=== PATIENT | female | born 1995 | race Caucasian/White ===

== ENCOUNTER → 2017-01-26 | Outpatient (CLI) | payer OTHER ==
[~2017-01-26] MED LIST: BCPILLS PO; CYCL10TA6 PO; IBUP-1050 PO; IBUP600T44 PO; NORGTAB36 PO
[2017-01-30 15:37] LABS: CHLAMYDIA TRACH RNA*** DETECTED (NOT DETECTED); GC (NEIS GONORRHOEAE)RNA** NOT DETECTED (NOT DETECTED)
== END | disposition home or self-care (01) ==
LOC: C.LABSPEC 11:54
PROVIDERS: ATTEND Obstetrics & Gynecology
DX: A74.9 Chlamydial infection, unspecified (principal)

== ENCOUNTER 2017-06-09 15:50 | Emergency (ER) | payer OTHER ==
[~2017-06-09] VITALS: Ht 157.5 cm; Wt 64.3 kg
[2017-06-09 15:53] VITALS: TEMP 36.9; Ht 157.5 cm; Wt 64.3 kg
[2017-06-09] MEDS ORDERED: BCPILLS PO (16:02)
[2017-06-09] MEDS ORDERED: IBUP-1050 PO (16:03)
[2017-06-09] MEDS ORDERED: SODIUM CHLORIDE 0.9% 1000ML 1,000 ML IV STA (16:08)
[2017-06-09] MEDS ORDERED: SODIUM CHLORIDE 0.9% 1000ML 1,000 ML IV ONE (16:08)
--- NOTE | 2017-06-09 16:24 | EMERGENCY ROOM VISIT NOTE ---
History Report prepared by Simon: Bandar Macdonald Under the Supervision of: Dr. Mahad Tran M.D. First contact with patient: 16:01 Chief Complaint: PELVIC PAIN Stated Complaint: PELVIC AND ABDOMINAL PAIN History of Present Illness The patient is a 21 year old female who presents to the Emergency Room with complaints of worsening intermittent right lower abdominal pain for the past two days. The patient saw her doctor this morning, and they told her to come in for evaluation for possible appendicitis and ovarian cysts. The patient additionally states that she is having some vaginal bleeding. She states that she is currently on control, and her last period was two weeks ago, and she is not . The patient states that there is some blood in her urine, and she is having some pain with intercourse. She denies any trauma, and she states that nothing makes her pain better or worse. She states that she still has her appendix, and she has not had any ovarian issues in the past. She denies any back pain or leg swelling. She states that she has a history of chlamydia. Source of History: patient, spouse/significant other Onset: two days ago Position: abdomen (RLQ) Timing: intermittent, worsening Associated Symptoms: No back pain Note: Associated symptoms: Pain with intercourse, vaginal bleeding, hematuria Review of Systems See HPI for pertinent positives & negatives. A total of 10 systems reviewed and were otherwise negative. Past Medical & Surgical Medical Problems: (1) Chlamydia Old medical records were reviewed. Nurse's notes were reviewed and I agree with No surgery. Still has her appendix. No history of Social History Smoking Status: Never Smoker Marital Status: in relationship Occupation Status: student Current/Historical Medications Scheduled Control Pills ( Control Pills), 1 TAB PO DAILY Ibuprofen (Advil), 400 MG PO DAILY Allergies Coded Allergies: No Known Allergies (Unverified , 06/09/17) Physical Exam Vital Signs Date Time Temp Pulse Resp B/P (MAP) Pulse Ox O2 Delivery O2 Flow Rate FiO2 06/09/17 19:48 94 16 119/73 100 06/09/17 18:49 87 18 117/71 06/09/17 15:53 36.9 88 16 134/68 98 Physical Exam General: Non-ill appearing young female in no acute distress. HEENT: Normal cephalic atraumatic. Pupils are equal round and reactive to light. Extraocular movements are intact. Oropharynx is pink with moist mucous membranes. No swelling of the mouth lips or tongue. Neck: Supple with a midline trachea. No meningeal signs or stiffness, no JVD or bruits. No Stridor. Chest: Clear to auscultation bilaterally. No wheezes or rhonchi. No increased work of breathing. Heart: regular rate and rhythm. Abdomen: Mild tenderness in the right lower quadrant. Soft, nondistended without rebound guarding or rigidity. Extremities: No cyanosis clubbing or edema. No calf tenderness or assymetry Spine/Back. Non tender to palpation. No CVA tenderness Skin: Good turgor without rashes. Neurologic exam: Cranial nerves two through 12 are intact. Motor and sensation are intact and symmetrical throughout. Medical Decision & Procedures ER Provider Diagnostic Interpretation: Radiology results as stated below per my review and radiologist interpretation: PELVIC COMPLETE NON OB CLINICAL HISTORY: eval for RLA pain PAIN COMPARISON STUDY: None FINDINGS: The uterus measured 7.3 cm. The endometrial stripe measured 4 mm. The right ovary measured 3.2 cm with several small follicular cysts. The left ovary measured 2.5 cm with several small follicular cysts. There is no ultrasonographic evidence of ovarian torsion. It should be noted that ovarian torsion can be present with normal Doppler ultrasonographic findings. There was no evidence of pathologic free pelvic fluid. IMPRESSION: Small bilateral ovarian follicular cysts. Otherwise negative study The above report was generated using voice recognition software. It may contain grammatical, syntax or spelling errors. Electronically signed by: Mitul Tom M.D. 06/09/2017 5:39 PM Dictated Date/Time: 06/09/2017 5:37 PM APPENDIX ULTRASOUND HISTORY: Right lower quadrant pain eval for appy COMPARISON: None. FINDINGS: Transabdominal scanning of the right lower quadrant was performed. The appendix was not identified. There are no fluid collections or masses within the right lower quadrant. IMPRESSION: The appendix was not identified. The above report was generated using voice recognition software. It may contain grammatical, syntax or spelling errors. Electronically signed by: Mitul Tom M.D. 06/09/2017 5:34 PM Dictated Date/Time: 06/09/2017 5:34 PM ABD/PELVIS IV AND ORAL CONT CT DOSE: 282.17 mGy.cm HISTORY: Pain eval for appy, [facility] TECHNIQUE: Multiaxial CT images of the abdomen and pelvis were performed following the use of intravenous and oral contrast. COMPARISON STUDY: None. FINDINGS: The lung bases are clear. The liver, spleen, gallbladder, pancreas, kidneys, and adrenal glands are within normal limits. No bowel wall thickening or obstruction. The pelvic organs are unremarkable. No suspicious lytic or blastic osseous lesions. The appendix is normal. Small bilateral ovarian follicular cyst. IMPRESSION: No significant abnormality identified within the abdomen or pelvis. Normal appendix. Small bilateral ovarian follicular cysts The above report was generated using voice recognition software. It may contain grammatical, syntax or spelling errors. Electronically signed by: Mitul Tom M.D. 06/09/2017 7:25 PM Dictated Date/Time: 06/09/2017 7:23 PM Laboratory Results 06/09/17 16:40 Red Blood Count 5.29, Mean Corpuscular Volume 80.7, Mean Corpuscular Hemoglobin 27.6, Mean Corpuscular Hemoglobin Concent 34.2, Mean Platelet Volume 9.3, Neutrophils (%) (Auto) 70.7, Lymphocytes (%) (Auto) 20.0, Monocytes (%) (Auto) 7.4, Eosinophils (%) (Auto) 1.6, Basophils (%) (Auto) 0.2, Neutrophils # (Auto) 6.51, Lymphocytes # (Auto) 1.84, Monocytes # (Auto) 0.68, Eosinophils # (Auto) 0.15, Basophils # (Auto) 0.02 06/09/17 16:40 Test 06/09/17 16:40 06/09/17 16:50 White Blood Count 9.21 K/uL (4.8-10.8) Red Blood Count 5.29 M/uL (4.2-5.4) Hemoglobin 14.6 g/dL (12.0-16.0) Hematocrit 42.7 % (37-47) Mean Corpuscular Volume 80.7 fL (80-100) Mean Corpuscular Hemoglobin 27.6 pg (25-34) Mean Corpuscular Hemoglobin Concent 34.2 g/dl (32-36) Platelet Count 323 K/uL (130-400) Mean Platelet Volume 9.3 fL (7.4-10.4) Neutrophils (%) (Auto) 70.7 % Lymphocytes (%) (Auto) 20.0 % Monocytes (%) (Auto) 7.4 % Eosinophils (%) (Auto) 1.6 % Basophils (%) (Auto) 0.2 % Neutrophils # (Auto) 6.51 K/uL (1.4-6.5) Lymphocytes # (Auto) 1.84 K/uL (1.2-3.4) Monocytes # (Auto) 0.68 K/uL (0.11-0.59) Eosinophils # (Auto) 0.15 K/uL (0-0.5) Basophils # (Auto) 0.02 K/uL (0-0.2) RDW Standard Deviation 37.6 fL (36.4-46.3) RDW Coefficient of Variation 12.8 % (11.5-14.5) Immature Granulocyte % (Auto) 0.1 % Immature Granulocyte # (Auto) 0.01 K/uL (0.00-0.02) Anion Gap 8.0 mmol/L (3-11) Est Creatinine Clear Calc Drug Dose 90.1 ml/min Estimated GFR () 110.4 Estimated GFR (Non- 95.2 BUN/Creatinine Ratio 14.3 (10-20) Calcium Level 9.1 mg/dl (8.5-10.1) Total Bilirubin 0.7 mg/dl (0.2-1) Direct Bilirubin 0.1 mg/dl (0-0.2) Aspartate Amino Transf (AST/SGOT) 19 U/L (15-37) Alanine Aminotransferase (ALT/SGPT) 28 U/L (12-78) Alkaline Phosphatase 68 U/L (45-117) Total Protein 8.6 gm/dl (6.4-8.2) Albumin 4.0 gm/dl (3.4-5.0) Lipase 146 U/L (73-393) Human Chorionic Gonadotropin, Qual NEG (NEG) Urine Color YELLOW Urine Appearance CLOUDY (CLEAR) Urine pH 5.5 (4.5-7.5) Urine Specific [place] 1.033 (1.000-1.030) Urine Protein TRACE (NEG) Urine Glucose (UA) NEG (NEG) Urine Ketones TRACE (NEG) Urine Occult Blood TRACE (NEG) Urine Nitrite NEG (NEG) Urine Bilirubin NEG (NEG) Urine Urobilinogen NEG (NEG) Urine Leukocyte Esterase NEG (NEG) Urine WBC (Auto) 1-5 /hpf (0-5) Urine RBC (Auto) 0-4 /hpf (0-4) Urine Hyaline Casts (Auto) 5-10 /lpf (0-5) Urine Epithelial Cells (Auto) >30 /lpf (0-5) Urine Bacteria (Auto) NEG (NEG) Urine Renal Epithelial Cells /lpf (0-5) Urine Crystals See comments (NONE PRSENT) Urine Test NEG (NEG) Laboratory studies as stated above per my review. Medications Administered Medications (Trade) Dose Ordered Sig/Remedios Route Start Time Stop Time Status Last Admin Dose Admin Sodium Chloride 1,000 ml @ 999 mls/hr Q1H1M STAT IV 06/09/17 16:08 06/09/17 17:08 DC 06/09/17 16:47 999 MLS/HR Sodium Chloride 1,000 ml @ 150 mls/hr Q6H40M ONCE IV 06/09/17 16:08 06/09/17 19:55 DC 06/09/17 16:48 150 MLS/HR ED Course 1601: Past medical records reviewed. The patient was evaluated in room C10, and a complete history and physical examination were performed. 1608: Sodium Chloride 1000 ml @ 150 mls/hr IV, Sodium Chloride 1000 ml @ 999 mls /hr IV 181: I reevaluated the patient, and she was resting comfortably. She is awaiting CT scan. 185: I reassessed the patient, and she is resting comfortably. 1940: Upon reevaluation, the patient is resting comfortably. I discussed the results and treatment plan with her. She verbalized agreement of the treatment plan. The patient was discharged home. Medical Decision Differentials include, but are not limited to; ovarian cysts, , appendicitis, electrolyte or metabolic abnormality. Blood pressure Screening: Patient was found to have normal blood pressure on screening and does not require follow-up. Medication Reconciliation: I attest that I have personally reviewed the patient' s current medication list. This patient comes in as described above. She was placed in room C 10. She is here for treatment evaluation of right lower quadrant pain. She was seen by her primary care physician today who did a vaginal exam as well as cultures and urinalysis. They did send her here for evaluation for ovarian pathology and possible appendectomy. The patient has had some vaginal bleeding. Given the fact she just had a pelvic exam by her primary care provider, I do not repeat this we did establish an IV. Her white count is not elevated and she's had no fever. She's has no acute electrolyte or metabolic abnormalities. She's had no significant anemia. Urinalysis not suggest a UTI with a culture pending. test is negative. Ultrasounds do not reveal the appendix and reveal no significant ovarian pathology. CAT scan of her abdomen was unremarkable for any acute findings. This may be related to her menstrual bleeding. She is on control and this could be breakthrough bleeding. She can use ibuprofen 400 mg every 6 hours for pain and return if: increasing pain, worsening of symptoms, fever chills any new problems or concerns and follow her doctor this week for recheck. She was happy with plan and discharged to home. Impression Primary Impression: Right lower quadrant abdominal pain Additional Impression: Vaginal bleeding Scribe Attestation The scribe's documentation has been prepared under my direction and personally reviewed by me in its entirety. I confirm that the note above accurately reflects all work, treatment, procedures, and medical decision making performed by me. Departure Information Dispostion Home / Self-Care Referrals No Doctor, Assigned (PCP) Forms HOME CARE DOCUMENTATION FORM, IMPORTANT VISIT INFORMATION, WORK / SCHOOL INSTRUCTIONS Patient Instructions My [facility] Additional Instructions Rest. Drink plenty of fluids. Use ibuprofen 400 mg every 6 hours, take with food Return if: Increasing pain, fever or chills, worsening symptoms, any new problems or concerns. Follow-up with your doctor this week for recheck if not better. Return to the ER at any point if symptoms worsen. Problem Qualifiers
[2017-06-09 16:52] LABS: BASO % 0.2 %; BASO ABS # 0.02 K/uL (0-0.2); COMPLETE YES; EOS % 1.6 %; HEMATOCRIT 42.7 % (37-47); IG% 0.1 %; LYMPH ABS # 1.84 K/uL (1.2-3.4); MEAN CELL VOLUME 80.7 fL (80-100); MEAN CORPUSCULAR HEMOGLOBIN 27.6 pg (25-34); MEAN CORPUSCULAR HGB CONC 34.2 g/dl (32-36); MEAN PLATELET VOLUME 9.3 fL (7.4-10.4); MONO % 7.4 %; NEUT % 70.7 %; PLATELET COUNT 323 K/uL (130-400); RED BLOOD COUNT 5.29 M/uL (4.2-5.4); WHITE BLOOD COUNT 9.21 K/uL (4.8-10.8)
[2017-06-09 17:10] LABS: BUN/CREATININE RATIO 14.3 (10-20); CALCIUM 9.1 mg/dl (8.5-10.1); CREATININE 0.87 mg/dl (0.60-1.20); POTASSIUM 3.5 mmol/L (3.5-5.1)
[2017-06-09 17:17] LABS: PREG INTERNAL NEGATIVE QC NEG CLEAR BACKGROUND; PREG INTERNAL POSITIVE QC POS CONTROL LINE
--- NOTE | 2017-06-09 17:35 | DIAGNOSTIC IMAGING REPORT ---
APPENDIX ULTRASOUND HISTORY: Right lower quadrant pain eval for appy COMPARISON: None. FINDINGS: Transabdominal scanning of the right lower quadrant was performed. The appendix was not identified. There are no fluid collections or masses within the right lower quadrant. IMPRESSION: The appendix was not identified. The above report was generated using voice recognition software. It may contain grammatical, syntax or spelling errors. Electronically signed by: Mitul Tom M.D. 06/09/2017 5:34 PM Dictated Date/Time: 06/09/2017 5:34 PM
--- NOTE | 2017-06-09 17:40 | DIAGNOSTIC IMAGING REPORT ---
PELVIC COMPLETE NON OB CLINICAL HISTORY: eval for RLA pain PAIN COMPARISON STUDY: None FINDINGS: The uterus measured 7.3 cm. The endometrial stripe measured 4 mm. The right ovary measured 3.2 cm with several small follicular cysts. The left ovary measured 2.5 cm with several small follicular cysts. There is no ultrasonographic evidence of ovarian torsion. It should be noted that ovarian torsion can be present with normal Doppler ultrasonographic findings. There was no evidence of pathologic free pelvic fluid. IMPRESSION: Small bilateral ovarian follicular cysts. Otherwise negative study The above report was generated using voice recognition software. It may contain grammatical, syntax or spelling errors. Electronically signed by: Mitul Tom M.D. 06/09/2017 5:39 PM Dictated Date/Time: 06/09/2017 5:37 PM
[2017-06-09 17:52] LABS: URINE APPEARANCE CLOUDY (CLEAR); URINE BILIRUBIN NEG (NEG); URINE COLOR YELLOW; URINE EPITHELIAL CELL AUTO >30 /lpf (0-5); URINE NITRITE NEG (NEG); URINE PH 5.5 (4.5-7.5); URINE SPECIFIC GRAVITY 1.033 (1.000-1.030); UROBILINOGEN NEG (NEG)
[2017-06-09 17:57] LABS: MANUAL MICROSCOPIC REQUIRED? NO; REVIEW REQ? YES
[2017-06-09] MEDS ORDERED: OPTIRAY 320 IV PRN (18:45)
--- NOTE | 2017-06-09 19:26 | DIAGNOSTIC IMAGING REPORT ---
ABD/PELVIS IV AND ORAL CONT CT DOSE: 282.17 mGy.cm HISTORY: Pain eval for appy, [facility] TECHNIQUE: Multiaxial CT images of the abdomen and pelvis were performed following the use of intravenous and oral contrast. COMPARISON STUDY: None. FINDINGS: The lung bases are clear. The liver, spleen, gallbladder, pancreas, kidneys, and adrenal glands are within normal limits. No bowel wall thickening or obstruction. The pelvic organs are unremarkable. No suspicious lytic or blastic osseous lesions. The appendix is normal. Small bilateral ovarian follicular cyst. IMPRESSION: No significant abnormality identified within the abdomen or pelvis. Normal appendix. Small bilateral ovarian follicular cysts The above report was generated using voice recognition software. It may contain grammatical, syntax or spelling errors. Electronically signed by: Mitul Tom M.D. 06/09/2017 7:25 PM Dictated Date/Time: 06/09/2017 7:23 PM
[2017-06-09 19:48] VITALS: BP 119/73; PULSE 94; O2SAT 100
== END 2017-06-09 19:49 | disposition home or self-care (01) ==
LOC: C.EDB 15:51 → C.EDC 19:49
DX: R10.30 Lower abdominal pain, unspecified (principal); N93.9 Abnormal uterine and vaginal bleeding, unspecified

== ENCOUNTER 2017-07-04 16:09 | Emergency (ER) | payer OTHER ==
[~2017-07-04] VITALS: Ht 157.5 cm; Wt 63.4 kg
[~2017-07-04 16:09] MED LIST changes: -CYCL10TA6 PO; -IBUP600T44 PO; -NORGTAB36 PO
[2017-07-04 16:18] VITALS: TEMP 36.8; Ht 157.5 cm; Wt 63.4 kg
[2017-07-04] MEDS ORDERED: KETOROLAC TROMETHAMINE 30 MG/ML VIAL IV STA (16:50)
[2017-07-04] MEDS ORDERED: SODIUM CHLORIDE 0.9% 1000ML 1,000 ML IV ONE (17:00)
--- NOTE | 2017-07-04 17:04 | EMERGENCY ROOM VISIT NOTE ---
History First contact with patient: 16:25 Chief Complaint: VAGINAL BLEEDING Stated Complaint: BLEEDING FOR 3 WEEKS, BACK AND ABD PAIN History of Present Illness The patient is a 21 year old female who presents to the Emergency Room with complaints of worsening lower abdominal cramping over the last month. She also started having vaginal bleeding. She reports having almost constant bleeding over the last 3 weeks. This is very unusual for her. She is on control pills. She typically has a regular menses every 28 days. She denies any heavy clots. She is not changing her tampon or pad every hour. She denies any chance of . She does admit to dyspareunia which is new within the last week. She denies any vaginal discharge. No fever or chills. Denies nausea or vomiting. She has had some intermittent diarrhea and constipation that has been going on for also several weeks. She also complains of lower back discomfort. She denies any urinary symptoms. The patient was evaluated in the emergency department approximately 1 month ago. Imaging was performed. She was told that she has small ovarian cysts, which were causing her symptoms. The patient did not follow-up with a concrete tester as they do not take her insurance. She has a [employer] student. Review of Systems 10 system review performed and negative unless noted in HPI or below Past Medical/Surgical History Medical Problems: (1) Chlamydia Bilateral ovarian cysts Social History Smoking Status: Never Smoker Alcohol Use: none Marital Status: in relationship Occupation Status: student Current/Historical Medications Scheduled Control Pills ( Control Pills), 1 TAB PO DAILY Cyclobenzaprine Hcl (Flexeril), 10 MG PO TID Ibuprofen (Advil), 400 MG PO DAILY Ibuprofen (Motrin), 600 MG PO TID Norgestimate-Ethinyl Estradiol (Ortho Tri-Cyclen), 1 TAB PO DAILY Physical Exam Vital Signs Date Time Temp Pulse Resp B/P (MAP) Pulse Ox O2 Delivery O2 Flow Rate FiO2 07/04/17 20:48 76 20 104/62 100 Room Air 07/04/17 19:40 76 16 98/65 100 Room Air 07/04/17 17:54 79 18 109/67 81 105/72 81 101/71 07/04/17 16:18 36.8 84 16 117/72 97 Room Air Physical Exam VITALS: Vitals are noted on the nurse's note and reviewed by myself. Vital signs stable. GENERAL: 21-year-old female, in no acute distress, nondiaphoretic, well- developed well-nourished. SKIN: The skin was without rashes, erythema, edema, or bruising. HEAD: Normocephalic atraumatic. MOUTH: Mucous membranes moist NECK: Supple without nuchal rigidity. No lymphadenopathy. No JVD. HEART: Regular rate and rhythm without murmurs gallops or rubs. LUNGS: Clear to auscultation bilaterally without wheezes, rales or rhonchi. No accessory muscle use. ABDOMEN: Positive bowel sounds x 4.Soft, nontender, without organomegaly. No guarding or rebound tenderness. No CVA tenderness noted bilaterally : external genitalia free of any lesions. Small amount of blood noted in the vaginal vault. Cervix is pink and free of any lesions. Os is closed. Bimanual exam reveals no masses on the ovaries bilaterally. No cervical motion tenderness noted. MUSCULOSKELETAL: No muscle atrophy, erythema, or edema noted. No tenderness over the spinous processes throughout the spine. No tenderness or muscle spasms noted of the paraspinous muscles. No SI joint tenderness bilaterally. Full range of motion in all extremities. Normal gait. Strength 5/5 throughout. NEURO: Patient was alert and oriented to person place and time. Normal sensation to touch. No focal neurological deficits. Medical Decision & Procedures ER Provider Diagnostic Interpretation: PELVIC COMPLETE NON OB HISTORY: 21 years-old Female continued lower abd pain--now menstrual bleeding. heavy COMPARISON: Pelvic ultrasound 06/09/2017 TECHNIQUE: Multiple real-time sonographic images of the deep pelvic structures were obtained transabdominally and transvaginally assessing grayscale appearance, color and spectral flow. FINDINGS: Transabdominal: Anteflexed uterus measures 9.5 x 4.2 x 6.8 cm. Right ovary measures 3.1 x 1.7 x 1.7 cm with arterial inflow documented. Transvaginal: Uterus measures 6.8 x 2.8 x 5.7 cm. Endometrium is homogeneous, 0.5 cm. No focal myometrial mass lesion identified. There is trace nonspecific fluid within the endocervical canal. Right ovary measures 3.0 x 1.9 x 3.0 cm and appears normal with arterial inflow documented. There is a trace amount of free pelvic fluid noted. Left ovary measures 2.3 x 2.0 x 2.2 cm with arterial inflow documented and appears unremarkable. Evaluation of the left ovary is limited secondary to deep position within the pelvis. IMPRESSION: 1. Normal sonographic appearance of the bilateral ovaries without evidence of torsion. 2. Uterus and endometrium appear unremarkable. 3. Trace free pelvic fluid, likely physiologic. The above report was generated using voice recognition software. It may contain grammatical, syntax or spelling errors. Electronically signed by: Marcus Miller M.D. 07/04/2017 7:46 PM Dictated Date/Time: 07/04/2017 7:41 PM The status of this report is Signed. Draft = Not yet reviewed or approved by Radiologist. Signed = Reviewed and approved by Radiologist. <AttendingPhy></AttendingPhy> <FamilyPhy>No Doctor, Assigned</FamilyPhy> < PrimaryPhy>No Doctor, Assigned</PrimaryPhy> <UnitNumber>[id number]</UnitNumber> <VisitNumber>[id number]</VisitNumber> Laboratory Results 07/04/17 16:50 Red Blood Count 5.02, Mean Corpuscular Volume 80.1, Mean Corpuscular Hemoglobin 26.9, Mean Corpuscular Hemoglobin Concent 33.6, Mean Platelet Volume 9.5, Neutrophils (%) (Auto) 62.2, Lymphocytes (%) (Auto) 25.6, Monocytes (%) (Auto) 9.7, Eosinophils (%) (Auto) 2.0, Basophils (%) (Auto) 0.3, Neutrophils # (Auto) 3.96, Lymphocytes # (Auto) 1.63, Monocytes # (Auto) 0.62, Eosinophils # (Auto) 0.13, Basophils # (Auto) 0.02 07/04/17 16:50 Test 07/04/17 16:50 White Blood Count 6.37 K/uL (4.8-10.8) Red Blood Count 5.02 M/uL (4.2-5.4) Hemoglobin 13.5 g/dL (12.0-16.0) Hematocrit 40.2 % (37-47) Mean Corpuscular Volume 80.1 fL (80-100) Mean Corpuscular Hemoglobin 26.9 pg (25-34) Mean Corpuscular Hemoglobin Concent 33.6 g/dl (32-36) Platelet Count 307 K/uL (130-400) Mean Platelet Volume 9.5 fL (7.4-10.4) Neutrophils (%) (Auto) 62.2 % Lymphocytes (%) (Auto) 25.6 % Monocytes (%) (Auto) 9.7 % Eosinophils (%) (Auto) 2.0 % Basophils (%) (Auto) 0.3 % Neutrophils # (Auto) 3.96 K/uL (1.4-6.5) Lymphocytes # (Auto) 1.63 K/uL (1.2-3.4) Monocytes # (Auto) 0.62 K/uL (0.11-0.59) Eosinophils # (Auto) 0.13 K/uL (0-0.5) Basophils # (Auto) 0.02 K/uL (0-0.2) RDW Standard Deviation 37.1 fL (36.4-46.3) RDW Coefficient of Variation 12.8 % (11.5-14.5) Immature Granulocyte % (Auto) 0.2 % Immature Granulocyte # (Auto) 0.01 K/uL (0.00-0.02) Urine Color YELLOW Urine Appearance CLEAR (CLEAR) Urine pH 5.5 (4.5-7.5) Urine Specific [place] 1.023 (1.000-1.030) Urine Protein NEG (NEG) Urine Glucose (UA) NEG (NEG) Urine Ketones NEG (NEG) Urine Occult Blood NEG (NEG) Urine Nitrite NEG (NEG) Urine Bilirubin NEG (NEG) Urine Urobilinogen NEG (NEG) Urine Leukocyte Esterase NEG (NEG) Urine Test NEG (NEG) Anion Gap 5.0 mmol/L (3-11) Est Creatinine Clear Calc Drug Dose 96.1 ml/min Estimated GFR () 120.3 Estimated GFR (Non- 103.8 BUN/Creatinine Ratio 13.1 (10-20) Calcium Level 9.5 mg/dl (8.5-10.1) Thyroid Stimulating Hormone (TSH) 1.910 uIu/ml (0.300-4.500) Medications Administered Medications (Trade) Dose Ordered Sig/Remedios Route Start Time Stop Time Status Last Admin Dose Admin Ketorolac Tromethamine (Toradol Inj) 30 mg NOW STAT IV 07/04/17 16:50 07/04/17 16:52 DC 07/04/17 17:20 30 MG Sodium Chloride 1,000 ml @ 999 mls/hr Q1H1M ONCE IV 07/04/17 17:00 07/04/17 18:00 DC 07/04/17 17:19 999 MLS/HR ED Course Patient was seen and examined Vital signs including blood pressure were reviewed medications list was verified with patient Labs were obtained, and a saline lock was established She was given Toradol 30 mg IV A pelvic ultrasound was performed in addition to a pelvic exam The patient was reassessed. She had good pain relief with Toradol. We discussed the findings of her workup. She voiced understanding. I reviewed discharge instructions the patient. They voiced understanding and had no further questions. Medical Decision Differential diagnosis: Dysmenorrhea, ovarian cysts, menorrhagia, fibroids, PID , STD, muscular back pain, UTI This patient is a pleasant 21 year-old [employer] student that returns to the emergency department with complaints of vaginal bleeding for the last few weeks. She was evaluated in the emergency department for lower abdominal pain. An extensive workup including a pelvic ultrasound in addition to a CT scan were performed. She was told to have ovarian cysts. Now, the patient is experiencing vaginal bleeding and some pain with sexual intercourse. No cervical motion tenderness nor any discharge or foul odor were noted on her exam. Cultures were taken. No large cysts were noted on the patient's ultrasound. No uterine fibroids. A TSH was normal. There is no white count. She is not anemic. The patient is not . She is experiencing breakthrough bleeding. The etiology of this is unclear. It was recommended that she follow up with an chartered financial analyst. They apparently do not take the patient's insurance. She was requesting to try another control pill. She was advised to finish her current month of her control. After she experiences a typical period, she was provided a prescription for one-month supply of Ortho Tri-Cyclen. She was advised of the risks of this medication ( in addition to all OCPs) including blood clots. Regarding the patient's back pain, there are no signs of UTI or pyelonephritis. It is possible that this is muscular in nature. She was provided a course of ibuprofen and Flexeril. She was advised to follow-up with [facility] within the next week. She will return to the emergency department with any new or worsening symptoms. Medication Reconcilliation Current Medication List: was personally reviewed by me Blood Pressure Screening Patient's blood pressure: Normal blood pressure Impression Primary Impression: Abnormal vaginal bleeding Additional Impression: Back pain Departure Information Dispostion Home / Self-Care Condition GOOD Prescriptions Ibuprofen (Motrin) 600 Mg Tab 600 MG PO TID for Pain, #15 TAB PRN Prov: Susi Mayen PA-C 07/04/17 Cyclobenzaprine Hcl (FLEXERIL) 10 Mg Tab 10 MG PO TID, #12 TAB Prov: Susi Mayen PA-C 07/04/17 Norgestimate-Ethinyl Estradiol (ORTHO TRI-CYCLEN) 1 Tab Tab 1 TAB PO DAILY for 28 Days, #28 TAB 0 Refills Prov: Susi Mayen PA-C 07/04/17 Referrals No Doctor, Assigned (PCP) Patient Instructions ED Bleed Irregular Vaginal, My [facility] [employer] Additional Instructions You were evaluated in the emergency department for abnormal vaginal bleeding in addition to back pain. Your blood counts are stable. There was no sign of a urinary tract infection. Please continue current medications as prescribed. Finish your current pill pack. After your period is over, you may try your new oral contraceptive. As with all oral contraceptives, there are risks such as blood clots. Smoking highly increases these risks. Please take ibuprofen 1 tab every 8 hours as needed for back pain Please take Flexeril 1 tab every 8 hours as needed for muscular pain. Please do not drink alcohol or drive well taking this medication as it may make you drowsy. It is highly recommended that you follow-up with [facility] services. Please call next week for an appointment. I would prefer that you be seen by [facility] services prior to starting your new oral contraceptive. Return to the emergency department if you have any of the following symptoms: -Fever of 103F or greater -Worsening pain -Soaking more than 1 pad per hour -Vomiting Problem Qualifiers
[2017-07-04 17:09] LABS: BASO % 0.3 %; BASO ABS # 0.02 K/uL (0-0.2); COMPLETE YES; HEMATOCRIT 40.2 % (37-47); IG% 0.2 %; LYMPH % 25.6 %; LYMPH ABS # 1.63 K/uL (1.2-3.4); MEAN CELL VOLUME 80.1 fL (80-100); MEAN CORPUSCULAR HEMOGLOBIN 26.9 pg (25-34); MEAN CORPUSCULAR HGB CONC 33.6 g/dl (32-36); MEAN PLATELET VOLUME 9.5 fL (7.4-10.4); MONO % 9.7 %; NEUT % 62.2 %; PLATELET COUNT 307 K/uL (130-400); RED BLOOD COUNT 5.02 M/uL (4.2-5.4); WHITE BLOOD COUNT 6.37 K/uL (4.8-10.8)
[2017-07-04 17:12] LABS: URINE APPEARANCE CLEAR (CLEAR); URINE BILIRUBIN NEG (NEG); URINE COLOR YELLOW; URINE NITRITE NEG (NEG); URINE PH 5.5 (4.5-7.5); URINE SPECIFIC GRAVITY 1.023 (1.000-1.030); UROBILINOGEN NEG (NEG)
[2017-07-04 17:19] LABS: BUN/CREATININE RATIO 13.1 (10-20); CALCIUM 9.5 mg/dl (8.5-10.1); CREATININE 0.81 mg/dl (0.60-1.20); POTASSIUM 3.9 mmol/L (3.5-5.1)
[2017-07-04 17:20] LABS: MANUAL MICROSCOPIC REQUIRED? NO; REVIEW REQ? NO
[2017-07-04 19:00] LABS: THYROID STIMULATING HORMONE 1.91 uIu/ml (0.300-4.500)
--- NOTE | 2017-07-04 19:48 | DIAGNOSTIC IMAGING REPORT ---
PELVIC COMPLETE NON OB HISTORY: 21 years-old Female continued lower abd pain--now menstrual bleeding. heavy COMPARISON: Pelvic ultrasound 06/09/2017 TECHNIQUE: Multiple real-time sonographic images of the deep pelvic structures were obtained transabdominally and transvaginally assessing grayscale appearance, color and spectral flow. FINDINGS: Transabdominal: Anteflexed uterus measures 9.5 x 4.2 x 6.8 cm. Right ovary measures 3.1 x 1.7 x 1.7 cm with arterial inflow documented. Transvaginal: Uterus measures 6.8 x 2.8 x 5.7 cm. Endometrium is homogeneous, 0.5 cm. No focal myometrial mass lesion identified. There is trace nonspecific fluid within the endocervical canal. Right ovary measures 3.0 x 1.9 x 3.0 cm and appears normal with arterial inflow documented. There is a trace amount of free pelvic fluid noted. Left ovary measures 2.3 x 2.0 x 2.2 cm with arterial inflow documented and appears unremarkable. Evaluation of the left ovary is limited secondary to deep position within the pelvis. IMPRESSION: 1. Normal sonographic appearance of the bilateral ovaries without evidence of torsion. 2. Uterus and endometrium appear unremarkable. 3. Trace free pelvic fluid, likely physiologic. The above report was generated using voice recognition software. It may contain grammatical, syntax or spelling errors. Electronically signed by: Marcus Miller M.D. 07/04/2017 7:46 PM Dictated Date/Time: 07/04/2017 7:41 PM
[2017-07-04 20:48] VITALS: BP 104/62; PULSE 76; O2SAT 100
[2017-07-04] MEDS ORDERED: IBUP600T44 PO (20:58)
[2017-07-04] MEDS ORDERED: NORGTAB36 PO (20:58)
[2017-07-04] MEDS ORDERED: CYCL10TA6 PO (20:58)
== END 2017-07-04 21:10 | disposition home or self-care (01) ==
LOC: C.EDB 16:10
DX: N93.9 Abnormal uterine and vaginal bleeding, unspecified (principal); Z79.3 Long term (current) use of hormonal contraceptives; M54.9 Dorsalgia, unspecified; N83.209 Unspecified ovarian cyst, unspecified side